=== PATIENT | male | born 1960 | race Caucasian/White ===

== ENCOUNTER 2019-02-27 07:46 | Day surgery (SDC) | payer BC ==
[2019-02-26 11:34] VITALS: BP 172/93
[2019-02-26 11:51] LABS: BASOPHILS % (AUTO) 0.5 % (0.0-5.0); EOSINOPHILS % (AUTO) 1.7 % (0.0-8.0); HEMATOCRIT 40.5 % (42-54); LYMPHOCYTES % (AUTO) 30.1 % (21.0-51.0); MEAN CORPUSCULAR HEMOGLOBIN 32.3 pg (27.0-33.0); MEAN CORPUSCULAR HGB CONC 33.8 g/dL (32.0-36.0); MEAN CORPUSCULAR VOLUME 95.5 fL (79-99); MONOCYTES % (AUTO) 8.3 % (3.0-13.0); PLATELET COUNT (AUTO) 389 K/uL (130-400); RED BLOOD CELL COUNT(AUTO) 4.24 MIL/uL (4.50-6.20); RED CELL DISTRIBUTION WIDTH 12.4 % (11.0-15.5); WHITE BLOOD COUNT (AUTO) 8.2 K/uL (4.8-10.8)
[2019-02-26 11:52] LABS: ALBUMIN 4.4 g/dL (3.5-5.0); BILIRUBIN,TOTAL 0.3 mg/dL (0.2-1.0); CREATININE 0.8 mg/dL (0.5-1.5); POTASSIUM 4.4 mmol/L (3.5-5.1); TOTAL PROTEIN, SERUM 8.2 g/dL (6.0-8.3)
[2019-02-27] VITALS (18 sets, daily range): BP systolic 139–158; BP diastolic 75–100
[~2019-02-27] VITALS: Ht 167.6 cm; Wt 79.4 kg
[~2019-02-27 07:46] MED LIST: CEPH500C2 PO; PROM12.513 PO
[2019-02-27] MEDS ORDERED: LACTATED RINGERS 1000ML 1,000 ML IV ONE (08:26)
[2019-02-27] MEDS: CEFAZOLIN SODIUM 1 GM VIAL IVP SCH ×2 (08:30→13:30)
[2019-02-27] MEDS ORDERED: OXYMETAZOLINE HCL SPRAY 15 ML BOTTLE ONE (09:15)
[2019-02-27] MEDS ORDERED: GENTAMICIN SULFATE 80 MG/2 ML VIAL ONE (09:15)
[2019-02-27] MEDS ORDERED: BACITRACIN 50,000 UNIT VIAL ONE (09:16)
[2019-02-27] MEDS ORDERED: LIDOCAINE 1%-EPI 1:100,000 20 ML VIAL IJ ONE ×2 (09:16→12:59)
[2019-02-27] MEDS ORDERED: DEXAMETHASONE SOD PHOSPHATE 10MG/ML 1ML VIAL ONE (09:18)
[2019-02-27] MEDS ORDERED: SUCCINYLCHOLINE 200MG/10ML SYR ONE (09:18)
[2019-02-27] MEDS ORDERED: LIDOCAINE PF 2% 5ML ABBOJECT ONE (09:18)
[2019-02-27] MEDS ORDERED: ROCURONIUM 10MG/1ML SYR 10 MG/ML ML ONE (09:19)
[2019-02-27] MEDS ORDERED: PROPOFOL 10 MG/ML 20ML VIAL IV ONE (09:19)
[2019-02-27] MEDS ORDERED: ONDANSETRON HCL 4 MG/2 ML VIAL ONE (09:19)
[2019-02-27] MEDS ORDERED: FENTANYL CITRATE PF 50 MCG/1 ML 2ML VIAL ONE ×2 (09:19→15:03)
[2019-02-27] MEDS ORDERED: MEPERIDINE-PF 25 MG/ML SYG ONE (09:19)
[2019-02-27] MEDS ORDERED: BACITRACIN 28.4 GM OINT TP ONE (13:28)
[2019-02-27] MEDS ORDERED: GLYCOPYRROLATE 1 MG/5 ML SYRINGE ONE (16:53)
[2019-02-27] MEDS ORDERED: NEOSTIGMINE 5MG/5ML SYR IV ONE (16:53)
[2019-02-27] MEDS ORDERED: KETOROLAC TROMETHAMINE 30MG/ML ONE (16:54)
--- NOTE | 2019-02-27 19:15 | NUR ---
PT AAOX3 , PT STABLE NO DISTRESS. DRESSING TO NOSE IS HAS MODERATE AMOUNT OF POST PROCEDURE DRAINAGE, DARK RED IN APPEARANCE. PT ABLE TO COUGH AND SPIT OUT BLOOD FROM MOUTH, PT SUCTIONED FROM MOUTH SEVERAL TIME. PT ABLE TO MOUTH BREATH WITH NO DISTRESS. C/O MODERATE PAIN TO SINUS S/P PROCEDURE. INSTRUCTED PT TO CALL MD OFFICE IF PAIN IS UN TOLERABLE OR FEVER OVER 101. POST CARE INSTRUCTIONS GIVEN TO PT AND SPOUSE, BOTH VERBALIZED UNDERSTANDING.PT DRESSED, PT TAKEN OUT IN WHEEL CHAIR, DRIVEN HOME BY SPOUSE.
== END 2019-02-27 19:15 | disposition home or self-care (01) ==
LOC: DAH 07:46
PROVIDERS: ATTEND Plastic Surgery
DX: J34.2 Deviated nasal septum (principal); J34.89 Other specified disorders of nose and nasal sinuses; M95.0 Acquired deformity of nose; F17.200 Nicotine dependence, unspecified, uncomplicated
CPT/HCPCS: 30130; 30420; 36415; 80053; 85025; A4215; A4221; A4222; A4223; A4344; A4450; A4570; A4600; A4606; A4649; A4663; A4930 ×2; A6260; J0330; J0690 ×2; J1100; J1580; J1885; J2001; J2175; J2405; J2704; J2710; J3010 ×2; J3490 ×3; J7030; J7120